=== PATIENT | female | born 1980 | race Caucasian/White ===

== ENCOUNTER 2018-06-06 10:15 | Emergency (ER) | payer MEDICARE, MEDICAID ==
[2018-06-06 10:49] LABS: Hematocrit 40 % (35-47); Hemoglobin 13.6 g/dl (12.0-16.0); Mean Corpuscular HGB Conc 34 g/dl (31-36); Mean Corpuscular Hemoglobin 28 pg (27-31); Mean Corpuscular Volume 81 fL (80-97); Mean Platelet Volume 7.8 um3 (7.4-10.4); Platelet Count 232 10^3/ul (150-450); Red Blood Count 4.87 10^6/ul (4.00-5.40); Red Cell Distribution Width 14 % (10.5-15); White Blood Count 8.8 10^3/ul (3.5-10.8)
[2018-06-06 10:50] LABS: ABS Basophils 0.1 10^3/ul (0-0.2); ABS Eosinophils 0.2 10^3/ul (0-0.6); ABS Lymphocytes 2.1 10^3/ul (1.0-4.8); ABS Monocytes 0.5 10^3/ul (0-0.8)
--- NOTE | 2018-06-06 10:56 | ED ---
Back Pain - HPI Summary HPI Summary: This is brenna Rodriguez documenting for attending Gabriela Moon MD. This patient is a 37 year old F presenting to ED with a chief complaint of back pain since 0800 this morning. She had a similar episode that occurred a couple days ago that woke her from sleep. She had slight back pain all day yesterday as well. The CC is described as a stabbing pain that is non-radiating, constant but waxing and waning with episodes of the worst pain lasting 2.5 hours. She states that the pain wraps around her chest like "it is in labor". The patient rates the pain 10/10 in severity at its worst. Symptoms aggravated by lying flat on her back and taking deep breaths. Symptoms alleviated by nothing. Patient denies recent heavy lifting, abdominal pain, and vaginal bleeding/ discharge. She has not had her period for 3 months now. She has been taking urine tests at home that were all negative, last was 3 weeks ago. She has 3 children, currently not on control. She is currently on medication for depression and anxiety. - History of Current Complaint Chief Complaint: EDChestPainROMI Stated Complaint: BACK/CHEST PAIN Time Seen by Provider: 06/06/18 10:32 Hx Obtained From: Patient Onset/Duration: Sudden Onset, Lasting Hours - 2.5 hours, Still Present Onset/Duration: Started Hours Ago - 0800 today, Still Present Timing: Constant - but waxing and waning, Lasting Hours - 2.5 hours Severity Initially: Severe Severity Currently: Severe Pain Intensity: 10 Pain Scale Used: 0-10 Numeric Character: Sharp Aggravating Symptom(s): Other - lying flat on her back and taking deep breaths Alleviating Symptom(s): Nothing Associated Signs And Symptoms: Positive: Other - Patient denies recent heavy lifting, abdominal pain, and vaginal bleeding/discharge. - Allergies/Home Medications Allergies/Adverse Reactions: Allergies Allergy/AdvReac Type Severity Reaction Status Date / Time codeine Allergy Dizziness Verified 06/06/18 10:20 PMH/Surg Hx/FS Hx/Imm Hx Cardiovascular History: Reports: Hx Hypertension - currently taking labetolol GI History: Reports: Hx Gastroesophageal Reflux Disease - currently taking protonix w/o relief past few weeks Sensory History: Reports: Hx Contacts or Glasses Opthamlomology History: Reports: Hx Contacts or Glasses Psychiatric History: Reports: Hx Anxiety, Hx Depression - currently taking latuda Infectious Disease History: No Infectious Disease History: Denies: Traveled Outside the [place] in Last 30 Days - Family History Known Family History: Positive: Other - child w/ cancer Family History: heart attack - Social History Alcohol Use: None Hx Substance Use: No Substance Use Type: Reports: None Hx Tobacco Use: Yes Smoking Status (MU): Former Smoker Type: Cigarettes Amount Used/How Often: 1/2-1PPD Review of Systems Positive: Chest Pain - back pain wrapping around to her chest Negative: Abdominal Pain Positive: other - denies vaginal bleeding; hasn't had her period for 3 months now, urine tests are all negative. Negative: discharge Positive: Other - back pain wrapping around to her chest; denies any recent heavy lifting All Other Systems Reviewed And Are Negative: Yes Physical Exam - Summary Physical Exam Summary: GENERAL: Patient is a well-developed and nourished FEMALE who is lying comfortable in the stretcher. Patient is not in any acute respiratory distress. HEAD AND FACE: Normocephalic EYES: PERRLA, EOMI x 2. EARS: Hearing grossly intact. MOUTH: Oropharynx within normal limits. NECK: Supple, trachea is midline, no adenopathy, no JVD, no carotid bruit. CHEST: Symmetric, no tenderness at palpation LUNGS: Clear to auscultation bilaterally. No wheezing or crackles. CVS: Regular rate and rhythm, S1 and S2 present, no murmurs or gallops appreciated. ABDOMEN: Soft, non-tender. Bowel sounds are normal. No abdominal abnormal pulsations. BACK: TTP of the paraspinal area in the thoracic region EXTREMITIES: Full ROM in all major joints, no edema, no cyanosis or clubbing. NEURO: Alert and oriented x 3. No acute neurological deficits. Speech is normal and follows commands. SKIN: Dry and warm Triage Information Reviewed: Yes Vital Signs On Initial Exam: Initial Vitals Temp Pulse Resp BP Pulse Ox 97.9 F 80 18 135/95 100 06/06/18 10:21 06/06/18 10:21 06/06/18 10:21 06/06/18 10:21 06/06/18 10:21 Vital Signs Reviewed: Yes Diagnostics - Vital Signs Vital Signs Temp Pulse Resp BP Pulse Ox 06/06/18 10:37 87 12 147/92 96 06/06/18 10:36 78 16 98 06/06/18 10:21 97.9 F 80 18 135/95 100 - Laboratory Lab Results: Lab Results 06/06/18 Range/Units 10:42 WBC 8.8 (3.5-10.8) 10^3/ul RBC 4.87 (4.00-5.40) 10^6/ul Hgb 13.6 (12.0-16.0) g/dl Hct 40 (35-47) % MCV 81 (80-97) fL MCH 28 (27-31) pg MCHC 34 (31-36) g/dl RDW 14 (10.5-15) % Plt Count 232 (150-450) 10^3/ul MPV 7.8 (7.4-10.4) um3 Neut % (Auto) Not Reportable Lymph % (Auto) Not Reportable [place] % (Auto) Not Reportable Eos % (Auto) Not Reportable Baso % (Auto) Not Reportable Absolute Neuts (auto) 6.0 (1.5-7.7) 10^3/ul Absolute Lymphs (auto) 2.1 (1.0-4.8) 10^3/ul Absolute Monos (auto) 0.5 (0-0.8) 10^3/ul Absolute Eos (auto) 0.2 (0-0.6) 10^3/ul Absolute Basos (auto) 0.1 (0-0.2) 10^3/ul Absolute Nucleated RBC Not Reportable Neutrophils % Pending Nucleated RBC % Not Reportable Normal RBC Morphology Pending Result Diagrams: 06/06/18 10:42 06/06/18 10:42 Lab Statement: Any lab studies that have been ordered have been reviewed, and results considered in the medical decision making process. - Radiology CXR Radiology Interpretation Completed By: Radiologist - No evidence for acute intrathoracic disease. ED physician has reviewed this radiology report. T-spine XR Radiology Interpretation Completed By: Radiologist - Very mild multilevel thoracic degenerative spondylosis. ED physician has reviewed this radiology report. - EKG 1040 Cardiac Rate: NL - 82 BPM EKG Rhythm: Sinus Rhythm EKG Interpretation: Normal interval, normal axis Re-Evaluation - Re-Evaluation First Eval Re-Evaluation Time: 12:29 Comment: Her pain is a lot better. Discussed results with the patient and plan for discharge. The patient is agreeable with this plan. Back Pain Course/Dx - Course Assessment/Plan: This patient is a 37 year old F presenting to ED with a chief complaint of back pain wrapping to her chest anteriorly since 0800 this morning. Her workup is unremarkable including D-dimer and trop. The patient was given toradol and GI cocktail and reports resolution of pain. The patients pain is most likely musculoskeletal. I discussed results with patient and she agrees with this plan. She is hemodynamically stable upon discharge. Strict return precautions given and she will otherwise follow up with her PCP. - Diagnoses Differential Diagnosis/HQI/PQRI: Positive: Other - back pain Provider Diagnoses: Back pain Discharge - Sign-Out/Discharge Documenting (check all that apply): Patient Departure - Discharge Plan Condition: Stable Disposition: HOME Patient Education Materials: Back Pain (ED) Referrals: Dada Estrada JR, SENIOR GOVERNMENT PROGRAM ANALYST [Primary Care Provider] - (Follow up with your PCP im 1- 2 days.) Additional Instructions: RETURN TO THE EMERGENCY DEPARTMENT FOR CHANGING OR WORSENING SYMPTOMS. - Billing Disposition and Condition Condition: STABLE Disposition: Home
[2018-06-06 10:58] LABS: INR 0.87 (0.77-1.02)
[2018-06-06 11:11] LABS: ABS Basophils 0 10^3/ul (0-0.2); ABS Neutrophils 6.4 10^3/ul (1.5-7.7); Monocytes % 5 % (0-7)
[2018-06-06 11:14] LABS: EGFR Non-African American 82.8 (>60)
[2018-06-06 11:30] VITALS: BP 129/82
[2018-06-06] MEDS ORDERED: Ketorolac INJ* 60 MG/2 ML VIAL IM ONE (11:39)
[2018-06-06] MEDS ORDERED: Al Hydrox/Mg Hydrox/Simet LIQ* 30 ML UDC PO ONE (11:39)
[2018-06-06] MEDS ORDERED: Lidocaine 2% VISCOUS* 15 ML UDC PO ONE (11:39)
--- NOTE | 2018-06-06 12:21 | RAD ---
Indication: Chest and back pain. History of tobacco use. Comparison: Chest radiograph of the same date. Technique: AP and lateral views thoracic spine. Report: Normal thoracic spine alignment. Negative for fracture or focal osseous lesion. Very mild multilevel thoracic degenerative spondylosis. Unremarkable paraspinal soft tissue contours. IMPRESSION: #. Very mild multilevel thoracic degenerative spondylosis.
--- NOTE | 2018-06-06 12:22 | RAD ---
Indication: Chest and back pain. Comparison: Thoracic spine exam of the same date. Technique: Dual energy PA chest. Report: Clear lungs and pleural spaces. Negative for pneumothorax. The heart, pulmonary vasculature, and mediastinal contours are unremarkable. Unremarkable osseous structures and soft tissue contours. IMPRESSION: #. No evidence for acute intrathoracic disease.
== END 2018-06-06 13:02 | disposition home or self-care (01) ==
LOC: ED 10:15
DX: M54.9 Dorsalgia, unspecified (principal); M47.814 Spondylosis without myelopathy or radiculopathy, thoracic region; Z87.891 Personal history of nicotine dependence; Z88.5 Allergy status to narcotic agent
CPT/HCPCS: 36415; 71045; 72070; 80053; 83605; 83690; 83735; 83880; 84484; 84702; 85025; 85060; 85379; 85610; 85730; 93005; 96372; 99283; A9270-GY; J1885

== ENCOUNTER 2018-09-13 11:23 | Emergency (ER) | payer MEDICARE, MEDICAID ==
[2018-09-13 11:41] VITALS: BP 150/93
--- NOTE | 2018-09-14 07:42 | UC ---
- Progress Note Progress Note: LWBS. NO IMAGING Discharge - Sign-Out/Discharge Documenting (check all that apply): Post-Discharge Follow Up All imaging exams completed and their final reports reviewed: No Studies - Discharge Plan Disposition: LEFT WITHOUT BEING SEEN Referrals: Nikki Miranda NP [Primary Care Provider] - - Billing Disposition and Condition Disposition: Left Without Being Seen
== END 2018-09-13 12:42 | disposition left against medical advice (07) ==
LOC: UCEAST 11:23
DX: Z53.21 Procedure and treatment not carried out due to patient leaving prior to being seen by health care provider (principal)

== ENCOUNTER → 2018-09-13 15:14 | Emergency (ER) | payer MEDICARE, MEDICAID ==
[~2018-09-13 15:14] MED LIST: Acetaminophen TAB* 325 MG PO ONE
--- NOTE | 2018-09-13 17:04 | RAD ---
INDICATION: Chest pain, shortness of breath, cough. Fever. COMPARISON: June 06, 2018 TECHNIQUE: Dual energy PA and routine lateral views of the chest were obtained. REPORT: Mild linear atelectasis at the LEFT lower lung zone. The lungs and pleural spaces are otherwise grossly clear. Negative for pneumothorax. The heart, pulmonary vasculature, and mediastinal contours are unremarkable. IMPRESSION: #. Mild linear atelectasis at the LEFT lower lung zone. No compelling evidence for pneumonia.
--- NOTE | 2018-09-13 18:22 | ED ---
Respiratory - HPI Summary HPI Summary: 37-year-old female presents with cough for the past couple days. She states she denies having fevers. her son was diagnosed with pneumonia. She has no history of asthma seemingly. She has a history of smoking but has not smoked in 6 months. She is not on control. No recent travel. No family history of blood clots. No pain or swelling in calf muscles. States she has chest pain only when she has a deep breath. No chest pain at rest. States that chest pain is diffuse. when she doesn't take a deep breath she does not have the pain. She also notices shortness breath when she coughs. Hasn't tried anything for her symptoms. - History of Current Complaint Chief Complaint: EDUpperRespComplaint Stated Complaint: COUGHING/CHEST PAIN/FEVER Time Seen by Provider: 09/13/18 17:42 Pain Intensity: 4 - Allergy/Home Medications Allergies/Adverse Reactions: Allergies Allergy/AdvReac Type Severity Reaction Status Date / Time codeine Allergy Dizziness Verified 09/13/18 11:41 PMH/Surg Hx/FS Hx/Imm Hx Endocrine/Hematology History: Denies: Hx Anticoagulant Therapy Cardiovascular History: Reports: Hx Hypertension - currently taking labetolol GI History: Reports: Hx Gastroesophageal Reflux Disease - currently taking protonix w/o relief past few weeks Sensory History: Reports: Hx Contacts or Glasses Opthamlomology History: Reports: Hx Contacts or Glasses Psychiatric History: Reports: Hx Anxiety, Hx Depression - currently taking latuda - Surgical History Surgery Procedure, Year, and Place: t&a, adnoids, deviated septum repair, carpel tumer rt hand, ulnar nerve lt , akillys repair, shaved akillys, lt ulner nerve repair Infectious Disease History: No Infectious Disease History: Denies: Traveled Outside the [place] in Last 30 Days - Family History Known Family History: Positive: Other - child w/ cancer Negative: Respiratory Disease Family History: heart attack - Social History Alcohol Use: Rare Hx Substance Use: No Substance Use Type: Reports: None Hx Tobacco Use: Yes Smoking Status (MU): Former Smoker Type: Cigarettes Amount Used/How Often: 1/2-1PPD Review of Systems Positive: Fever Positive: Chest Pain - when takes deep breath Positive: Shortness Of Breath, Cough Negative: Abdominal Pain All Other Systems Reviewed And Are Negative: Yes Physical Exam Triage Information Reviewed: Yes Vital Signs On Initial Exam: Initial Vitals Temp Pulse Resp BP Pulse Ox 99.1 F 105 18 143/81 98 09/13/18 15:19 09/13/18 15:19 09/13/18 15:19 09/13/18 15:19 09/13/18 15:19 Vital Signs Reviewed: Yes Appearance: Positive: Well-Appearing Skin: Positive: Warm, Dry Head/Face: Positive: Normal Head/Face Inspection Eyes: Positive: Normal, EOMI, BASILIO, Conjunctiva Clear ENT: Positive: Normal ENT inspection, Pharynx normal, TMs normal Respiratory/Lung Sounds: Positive: Clear to Auscultation, Breath Sounds Present Cardiovascular: Positive: Normal, RRR Abdomen Description: Positive: Nontender, Soft Bowel Sounds: Positive: Present Musculoskeletal: Positive: Normal Neurological: Positive: Normal Psychiatric: Positive: Normal Diagnostics - Vital Signs Vital Signs Temp Pulse Resp BP Pulse Ox 09/13/18 15:19 99.1 F 105 18 143/81 98 - Laboratory Lab Statement: Any lab studies that have been ordered have been reviewed, and results considered in the medical decision making process. - Radiology chest Radiology Interpretation Completed By: Radiologist Summary of Radiographic Findings: #. Mild linear atelectasis at the LEFT lower lung zone. No compelling evidence for. pneumonia. Disposition - Course Course Of Treatment: 37-year-old female presents with cough for the past couple days. She states she denies having fevers. her son was diagnosed with pneumonia. She has no history of asthma seemingly. She has a history of smoking but has not smoked in 6 months. She is not on control. No recent travel. No family history of blood clots. No pain or swelling in calf muscles. States she has chest pain only when she has a deep breath. No chest pain at rest. States that chest pain is diffuse. when she doesn't take a deep breath she does not have the pain. She also notices shortness breath when she coughs. Hasn't tried anything for her symptoms. On exam lungs clear to auscultation. Chest x-ray shows atelectasis. Discuss with patient we'll try a short course course with some inhaler. Told to follow with primary. Patient understands and agrees with plan. - Differential Dx - Cardiopulmonary Differential Diagnoses - Cardiopulmonary: Bronchitis, Laryngitis, Lower Resp Infection - Diagnoses Provider Diagnoses: Bronchitis Discharge - Sign-Out/Discharge Documenting (check all that apply): Patient Departure - Discharge Plan Condition: Good Disposition: HOME Prescriptions: Albuterol HFA INHALER* [Ventolin HFA Inhaler*] 1 puff INH Q6H PRN #1 mdi PRN Reason: Cough predniSONE TAB* [Deltasone TAB*] 50 mg PO DAILY #5 tab Patient Education Materials: Acute Bronchitis (ED) Referrals: Nikki Miranda NP [Primary Care Provider] - Additional Instructions: Use inhaler up to two puffs every 4 hours for cough Take steroid once a day for 5 days Take Tylenol or ibuprofen for pain every 6 hours follow up with primary within 5 days Return to ED if develop any new or worsening symptoms - Billing Disposition and Condition Condition: GOOD Disposition: Home
[2018-09-13 19:17] VITALS: BP 125/81
== END | disposition home or self-care (01) ==
LOC: ED 15:14
DX: J40 Bronchitis, not specified as acute or chronic (principal); R05 Cough; R07.9 Chest pain, unspecified; R50.9 Fever, unspecified; I10 Essential (primary) hypertension; K21.9 Gastro-esophageal reflux disease without esophagitis; Z87.891 Personal history of nicotine dependence
CPT/HCPCS: 71046; 99282; A9270-GY

== ENCOUNTER 2018-12-04 15:18 | Emergency (ER) | payer MEDICARE, MEDICAID ==
--- OUTSIDE RECORDS SUMMARY | 2018-12-04 15:26 | XMS REPORT | Continuity of Care Document ---
:1980 External Reference #:[id number] Author Name Nikki Miranda NP Address [address] [place] [address] Care Team Providers Name Role Phone Nikki Miranda NP Care Team Information Traffic Representative Unavailable Payers Type Date Identification Numbers Payment Provider Subscriber Policy Number: [id number] Medicare - Bswar Umd Miquel Sequeira PayID: [id number] [address] [place] [address] Policy Number: [id number] Medicaid After Medicare Miquel Sequeira Group Name: 2 1 [address] PayID: [id number] [place] [address] Advance Directives Description No Information Available Problems Description No Information Family History Description No Information Available Social History Type Date Description Comments Sex Unknown Allergies, Adverse Reactions, Alerts Date Description Reaction Status Severity Comments 08/03/2018 Codeine Active Medications Medication Date Status Form Strength Qnty SIG Indications Ordering Provider Latuda / Active Tablets 40mg Take One Unknown 0000 Tablet By Mouth Every Day AT 5P.M. With Food Pantoprazole / Active Tablets DR 80mg Take One Unknown Sodium 0000 Tablet By Mouth Every Day Metformin HCL / Active Tablets 500mg take one Unknown 0000 tablet by mouth twice a day Doxycycline 09/17/ Hx Capsules 100mg 14caps 1 capsule Nikki Hyclate 2018 - by mouth GAVIN Miranda twice 2018 daily x 7 days Ventolin HFA / Hx Aerosol 108(90Base Inhale Unknown 0000 - ) mcg/Act One puff 11/30/ By Mouth 2018 Every 6 Hours as Needed For Cough Immunizations CPT Code Status Date Vaccine Lot # [id number] Refused 09/17/2018 Influenza Virus Vaccine, Quadrivalent, 3 Yr > Quad , Preserv Free Vital Signs Date Vital Result Comment 11/30/2018 1:22pm Weight 340.00 lb Weight 154.224 kg BP Systolic 132 mmHg BP Diastolic 74 mmHg Heart Rate 16 /min Body Temperature 97.8 F Respiratory Rate 16 /min Height 68 inches 5'8" BMI (Body Mass Index) 51.7 kg/m2 O2 % BldC Oximetry 97 % 10/01/2018 9:54am Weight 333.00 lb Weight 151.049 kg BP Systolic 140 mmHg BP Diastolic 82 mmHg Heart Rate 80 /min Body Temperature 97.3 F Respiratory Rate 16 /min O2 % BldC Oximetry 97 % 09/17/2018 9:50am Weight 331.00 lb Weight 150.142 kg BP Systolic 139 mmHg BP Diastolic 88 mmHg Heart Rate 92 /min Body Temperature 99.6 F O2 % BldC Oximetry 92 % 08/03/2018 8:08am Weight 330.00 lb Weight 149.688 kg BP Systolic 128 mmHg BP Diastolic 84 mmHg Heart Rate 76 /min Body Temperature 98.8 F Respiratory Rate 16 /min Height 69 inches 5'9" BMI (Body Mass Index) 48.7 kg/m2 Results Test Date Facility Test Result H/L Range Note Rapid Influenza 09/13/2018 [facility] Influenza A NEGATIVE Negative 1 A & B Molecular [phone] Molecular Influenza B Molecular NEGATIVE Negative Laboratory test 09/13/2018 [facility] Influenza A & B SEE RESULT 2 finding [phone] Request BELOW Laboratory test 08/03/2018 [facility] Hemoglobin A1c 5.6 % N 4.0-5. 3 finding [phone] (Glyco HGB) 6 CBC Auto Diff 08/03/2018 [facility] White Blood 7.6 10^3/uL N 3.5-10 [phone] Count .8 Red Blood Count 5.07 10^6/uL N 4.00-5.40 Hemoglobin 14.1 g/dL N 12.0-16.0 Hematocrit 42 % N 35-47 Mean Corpuscular Volume 82 fL N 80-97 Mean Corpuscular Hemoglobin 28 pg N 27-31 Mean Corpuscular HGB Conc 34 g/dL N 31-36 Red Cell Distribution Width 14 % N 10.5-15 Platelet Count 227 10^3/uL N 150-450 Mean Platelet Volume 8.6 um3 N 7.4-10.4 Abs Neutrophils 4.8 10^3/uL N 1.5-7.7 Abs Lymphocytes 2.2 10^3/uL N 1.0-4.8 Abs Monocytes 0.4 10^3/uL N 0-0.8 Abs Eosinophils 0.1 10^3/uL N 0-0.6 Abs Basophils 0 10^3/uL N 0-0.2 Abs Nucleated RBC 0 10^3/uL Granulocyte % 63.5 % N 38-83 Lymphocyte % 28.9 % N 25-47 Monocyte % 5.6 % N 0-7 Eosinophil % 1.5 % N 0-6 Basophil % 0.5 % N 0-2 Nucleated Red Blood Cells % 0.1 Comp Metabolic Panel 08/03/2018 [facility] Sodium 139 mmol/L N 135-145 [phone] Potassium 4.5 mmol/L N 3.5-5.0 Chloride 104 mmol/L N 101-111 Co2 Carbon Dioxide 27 mmol/L N 22-32 Anion Gap 8 mmol/L N 2-11 Glucose 101 mg/dL High 70-100 Blood Urea Nitrogen 12 mg/dL N 6-24 Creatinine 0.78 mg/dL N 0.51-0.95 BUN/Creatinine Ratio 15.4 N 8-20 Calcium 9.6 mg/dL N 8.6-10.3 Total Protein 7.2 g/dL N 6.4-8.9 Albumin 4.4 g/dL N 3.2-5.2 Globulin 2.8 g/dL N 2-4 Albumin/Globulin Ratio 1.6 N 1-3 Total Bilirubin 0.30 mg/dL N 0.2-1.0 Alkaline Phosphatase 84 U/L N 34-104 Alt 28 U/L N 7-52 Ast 20 U/L N 13-39 Egfr Non- 84.0 >60 Egfr 101.7 >60 4 Lipid Profile 08/03/2018 [facility] Triglycerides 240 mg/dL 5 (Trig/Chol/HDL) [phone] Cholesterol 211 mg/dL 6 HDL Cholesterol 48.5 mg/dL 7 LDL Cholesterol 115 mg/dL 8 Laboratory test 08/03/2018 [facility] TSH (Thyroid 2.50 mcIU/mL N 0.34-5.60 9 finding [phone] Stim Horm) Free T4 (Free Thyroxine) 0.69 ng/dL N 0.61-1.12 10 T3 Total 151 ng/dL N 87-178 11 Thyroperoxidase AB 0.60 IU/mL N <9 12 1 Spreader Box Operator: [id number] 2 SEE RESULT BELOW Name: ENRIKEMIQUEL : [address]: Ruth Sommer MD Acct: [id number] Unit: [id number] AGE: 37 Location: ED Re09/13/18 SEX: F Status: REG ER SPEC: [id number] RODERICK: 09/13/[address]: Meseret LAMAS REQ: [id number] RECD: 09/13/18 STATUS: ADELINE GONZALEZ DR: Nikki Miranda HIDE COOKING OPERATOR _ SOURCE: NASAL SPDESC: ORDERED: Flu A B Request Procedure Result Reported Site Rapid Influenza A B Request Final 09/13/18- 1817 ML Specimen received for Influenza A/B Molecular testing * ML - Main Lab . END OF REPORT DEPARTMENT OF PATHOLOGY, [address] [place] [address] Ezio Logan M.D. Director [facility] # [id number] 3 Therapeutic target for the treatment of diabetes mellitus patients is <7% HBA1C, and in selective patients <6.0%. Please refer to [place] [employer] diabetic care guidelines for further information. 4 Because ethnic data is not always readily available, this report includes an eGFR for both -Americans and non- Americans. The National Kidney Disease Education Program (NKDEP) does not endorse the use of the MDRD equation for patients that are not between the ages of 18 and 70, are , have extremes of body size, muscle mass, or nutritional status, or are non- or non-. According to the National Kidney Foundation, irrespective of diagnosis, the stage of the disease is based on the level of kidney function: Stage Description GFR(mL/min/1.73 m(2)) 1 Kidney damage with normal or decreased GFR 90 2 Kidney damage with mild decrease in GFR 60-89 3 Moderate decrease in GFR 30-59 4 Severe decrease in GFR 15-29 5 Kidney failure <15 (or dialysis) 5 Desirable: <150 Borderline High: 150-199 High: 200-499 Very High: >500 6 Desirable: <200 Borderline High: 200-239 High: >239 7 Low: <40 Desirable: 40-60 High: >60 8 Desirable: <100 Near Optimal: 100-129 Borderline High: 130-159 High: 160-189 Very High: >189 9 [id number] 10 [id number] 12 [id number] Procedures Date Code Description Status 09/17/2018 83143 Nebulizer Treatment Completed Encounters Type Date Location Provider Dx Diagnosis Office Visit 10/01/2018 Main Office Nikki Miranda, GAVIN J18.9 Pneumonia, 10:00a unspecified organism G47.9 Sleep disorder, unspecified R63.5 Abnormal weight gain Office Visit 09/17/2018 9:30a [facility] Nikki Miranda, J18.9 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 If you can't sleep, get out of bed and try again later. -Have coffee, tea, and other foods that have caffeine only in the morning -Avoidalcohol in the late afternoon, evening, and bedtime -Avoid smoking , especially in the evening -Keep your bedroom dark, cool, quiet, and free of reminders of work or other things that cause you stress -Solve problems you have before you go to bed -Exercise several days a week, but not right before bed -Avoid looking at phones or reading devices ("e-books") that give off light before bed. This can makeit harder to fall asleep. Other things that can improve sleep include: -Relaxation therapy, in whichyou focus on relaxing all the muscles in your body 1 by 1 -Working with a counselor or psychologist to deal with the problems that might be causing poor sleep -You should spend no more than 20 minutes lying in bed trying to fall asleep. -If you cannot fall asleep within 20 minutes, get up, go to another room and read or find another relaxing activity until you feel sleepy again. Activities such as eating, balancing your checkbook, doing housework, watching TV, or studying for a test, which "reward" you for staying awake, should be avoided. -When you start to feel sleepy, you can return to bed. If you cannot fall asleep in another 20 minutes, repeat the process. -Set an alarm clock and get up at the same time every day, including weekends. -Do not take a nap during the day.R63.5 Abnormal weight gainFollow up:.M54.5 Low back painNew Therapy:Physical Therapy-Evaluate And Treat
[2018-12-04 15:34] VITALS: BP 148/90
--- NOTE | 2018-12-04 15:50 | ED ---
Throat Pain/Nasal Congestion - HPI Summary HPI Summary: developed pain in a right upper molar shortly after extraction a few days ago. since that time has returned to the dentist socket was packed, packing fell out shortly afterward, now using ibuprofen 2400 mg per day - History of Current Complaint Chief Complaint: UCDentalProblem Time Seen by Provider: 12/04/18 15:38 Hx Obtained From: Patient Onset/Duration: Gradual Onset, Lasting Days Severity: Moderate - Allergies/Home Medications Allergies/Adverse Reactions: Allergies Allergy/AdvReac Type Severity Reaction Status Date / Time codeine Allergy See Comment Verified 12/04/18 15:34 Home Medications: Home Medications metFORMIN* [Glucophage 500 MG TAB *] 500 mg PO BID 12/04/18 [History Confirmed 12/04/18] PMH/Surg Hx/FS Hx/Imm Hx Previously Healthy: Yes Endocrine/Hematology History: Denies: Hx Anticoagulant Therapy Cardiovascular History: Reports: Hx Hypertension - currently taking labetolol GI History: Reports: Hx Gastroesophageal Reflux Disease - currently taking protonix w/o relief past few weeks Sensory History: Reports: Hx Contacts or Glasses Opthamlomology History: Reports: Hx Contacts or Glasses Psychiatric History: Reports: Hx Anxiety, Hx Depression - currently taking latuda - Surgical History Surgery Procedure, Year, and Place: t&a, adnoids, deviated septum repair, carpel tumer rt hand, ulnar nerve lt , achilles repair, shaved achilles, lt ulnar nerve repair Infectious Disease History: No Infectious Disease History: Denies: Traveled Outside the [place] in Last 30 Days - Family History Known Family History: Positive: Other - child w/ cancer Negative: Respiratory Disease Family History: heart attack - Social History Alcohol Use: Rare Hx Substance Use: No Substance Use Type: Reports: None Hx Tobacco Use: Yes Smoking Status (MU): Former Smoker Type: Cigarettes Amount Used/How Often: 1/2-1PPD Review of Systems - ROS Summary Review of Systems Summary: bipolar disease, diabetes mellitus Constitutional: Negative Eyes: Negative Positive: Other - dental pain right upper molar Cardiovascular: Negative Respiratory: Negative Gastrointestinal: Negative Genitourinary: Negative Musculoskeletal: Negative All Other Systems Reviewed And Are Negative: Yes Physical Exam Triage Information Reviewed: Yes Vital Signs On Initial Exam: Initial Vitals Temp Pulse Resp BP Pulse Ox 37.1 C 95 18 148/90 97 12/04/18 15:29 12/04/18 15:29 12/04/18 15:29 12/04/18 15:29 12/04/18 15:29 Vital Signs Reviewed: Yes Appearance: Positive: Well-Appearing Skin: Positive: Warm Head/Face: Positive: Normal Head/Face Inspection Eyes: Positive: Normal ENT: Positive: Normal ENT inspection, Other - mild swelling in the gingiva surrounding the area of recent tooth extraction Neck: Positive: Supple Respiratory/Lung Sounds: Positive: Clear to Auscultation Cardiovascular: Positive: Normal Diagnostics - Vital Signs Vital Signs Temp Pulse Resp BP Pulse Ox 12/04/18 15:29 37.1 C 95 18 148/90 97 - Laboratory Lab Statement: Any lab studies that have been ordered have been reviewed, and results considered in the medical decision making process. EENT Course/Dx - Diagnoses Provider Diagnoses: Dry tooth socket Discharge - Sign-Out/Discharge Documenting (check all that apply): Patient Departure All imaging exams completed and their final reports reviewed: No Studies - Discharge Plan Condition: Fair Disposition: HOME Prescriptions: Oxycodone HCl/Acetaminophen [Percocet 5-325 mg Tablet] 1 each PO Q8HR PRN 6 Days #20 tablet MDD 3 PRN Reason: Pain - Moderate Patient Education Materials: Dry Socket (ED) Referrals: Nikki Miranda NP [Primary Care Provider] - - Billing Disposition and Condition Condition: FAIR Disposition: Home
== END 2018-12-04 16:00 | disposition home or self-care (01) ==
LOC: UCEAST 15:18
DX: M27.3 Alveolitis of jaws (principal); I10 Essential (primary) hypertension; K21.9 Gastro-esophageal reflux disease without esophagitis; Z88.5 Allergy status to narcotic agent; Z87.891 Personal history of nicotine dependence
CPT/HCPCS: 99212; G0463

== ENCOUNTER 2019-05-26 19:25 | Emergency (ER) | payer MEDICAID, MEDICARE ==
[2019-05-26 19:31] VITALS: BP 155/95
--- OUTSIDE RECORDS SUMMARY | 2019-05-26 19:36 | XMS REPORT | Continuity of Care Document ---
:1980 External Reference #:[id number] Author Name MarshalalmaKimberly Care Team Providers Name Role Phone Nikki Miranda F.N.P. Primary Care Physician Unavailable Payers Date Identification Numbers Payment Provider Subscriber Policy Number: [id number] Medicare Megan Sequeira PayID: [id number] [address] [place] [address] Policy Number: [id number] Medicaid Megan Sequeira Group Name: 1 1 [address] PayID: [id number] [place] [address] Problems Active Problems Provider Date Migraine without aura, not refractory Noah Spaulding MD Onset: 01/14/2019 Family History Date Family Member(s) Observation Comments General Diabetes General Breast Cancer General Colon Cancer General Pancreatic Cancer General Skin Cancer Siblings 1 Social History Type Date Description Comments Sex Unknown Marital Status Lives With Lives With Children Lives With friend 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 Tobacco Use Start: Unknown End: Former Cigarette Smoker Unknown Tobacco Use Start: Unknown End: Former Cigarette Smoker 1 Unknown Pack Daily Cigarette Use Pack Years - 19 Smoking Status Reviewed: 05/09/19 Former Cigarette Smoker 1 Pack Daily ETOH Use Rarely consumes alcohol Tobacco Use Start: Unknown End: Patient is a former smoker Unknown Recreational Drug Use Former Drug User Allergies, Adverse Reactions, Alerts Active Allergies Reaction Severity Comments Date Codeine 01/11/2019 Medications Active Medications SIG Qnty Indications Ordering Provider Date Amitriptyline HCL 1/2 pill by 60tabs Noah Spaulding MD 02/04/2019 10mg mouth at bedtime Tablets for a week then 1 at bed for two weeks then 2 at bed Latuda once a day Unknown 40mg Tablets Protonix 2 by mouth every Unknown 40mg Tablets DR day Metformin HCL 1 tab po qhs Unknown 1000mg Tablets History Medications Protonix 1 by mouth every day Unknown - 01/14/[address] Vital Signs Date Vital Result Comment 05/09/2019 2:26pm Height 69 inches 5'9" Weight 345.50 lb Heart Rate 92 /min BP Systolic Sitting 120 mmHg Lue large cuff BP Diastolic Sitting 80 mmHg Lue large cuff Respiratory Rate 16 /min O2 % BldC Oximetry 97 % On Ra BMI (Body Mass Index) 51.0 kg/m2 02/10/2019 10:39am Height 69 inches 5'9" Weight 344.38 lb Heart Rate 98 /min BP Systolic Sitting 128 mmHg large adult cuff left arm BP Diastolic Sitting 86 mmHg large adult cuff left arm O2 % BldC Oximetry 95 % at rest on room air BMI (Body Mass Index) 50.8 kg/m2 01/14/2019 9:55am Height 69 inches 5'9" Weight 345.00 lb Heart Rate 90 /min BP Systolic Sitting 138 mmHg BP Diastolic Sitting 82 mmHg Respiratory Rate 16 /min BMI (Body Mass Index) 50.9 kg/m2 01/11/2019 3:12pm Height 69 inches 5'9" Weight 345.00 lb Heart Rate 100 /min BP Systolic Sitting 140 mmHg Rue large cuff BP Diastolic Sitting 80 mmHg Rue large cuff Respiratory Rate 16 /min O2 % BldC Oximetry 96 % BMI (Body Mass Index) 50.9 kg/m2 Neck Circumference in inches 17.50 Procedures Date Code Description Status 03/08/2019 40959 Polysomnography Sleep Staging 4+ Parameters W/Cpap Completed 01/31/2019 48320 Polysomnography Sleep Staging 4+ Parameters Completed Encounters Type Date Location Provider Dx Diagnosis Office Visit 02/10/2019 [facility] G47.33 Obstructive sleep 10:30a [facility] apnea (adult) [facility] ([facility]) Z68.43 Body mass index (BMI) 50-59.9, adult Office 01/14/2019 [facility] G43.709 Chronic migraine Visit 10:00a Clinic MD [facility] w/o aura, not intractable, w/o stat migr Office 01/11/2019 [facility] R06.83 Snoring Visit 3:00p [facility] MD R53.83 Other fatigue E66.09 Other obesity due to excess calories Z68.43 Body mass index (BMI) 50-59.9, adult Plan of Treatment Future Appointment(s):05/31/2019 9:45 am - Noah Spaulding MD at [facility] X[facility]vv9805/09/2019 - [facility], NPG47.33 Obstructive sleep apnea (adult) (pediatric)New Orders:[facility]Home[facility], Ordered: Follow up:4 monthsRecommendations:If you have any sleepiness while driving you MUST avoid operating a vehicle or machinery. Work on getting 7-8 hours of sleep per night with your CPAP machine. If you have difficulty with your equipment, or need to replace your mask or hoses, please contact your homecare agency. If you have any further questions, please call the [facility] at [phone] Obesity, unspecifiedRecommendations:Work on getting more regular exercise during the day
== END 2019-05-26 20:10 | disposition left against medical advice (07) ==
LOC: ED 19:25
DX: Z53.21 Procedure and treatment not carried out due to patient leaving prior to being seen by health care provider (principal)
CPT/HCPCS: 99281

== ENCOUNTER 2019-06-23 05:54 | Emergency (ER) | payer MEDICARE, MEDICAID ==
--- OUTSIDE RECORDS SUMMARY | 2019-06-23 06:06 | XMS REPORT | Continuity of Care Document ---
:1980 External Reference #:[id number] Author Name Shania West Care Team Providers Name Role Phone Nikki Miranda F.N.P. Primary Care Physician Unavailable Payers Date Identification Numbers Payment Provider Subscriber Policy Number: [id number] Medicare Megan Sequeira PayID: [id number] [address] [place] [address] Policy Number: [id number] Medicaid Megan Sequeira Group Name: 1 [address] PayID: [id number] [place] [address] Problems Active Problems Provider Date Migraine without aura, not refractory Noah Spaulding MD Onset: 01/14/2019 Family History Date Family Member(s) Observation Comments General Diabetes General Breast Cancer General Colon Cancer General Pancreatic Cancer General Skin Cancer Siblings 1 Social History Type Date Description Comments Sex Unknown Marital Status Lives With Lives With Children Lives With friend 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 Tobacco Use Start: Unknown End: Former Cigarette Smoker Unknown Tobacco Use Start: Unknown End: Former Cigarette Smoker 1 Unknown Pack Daily Cigarette Use Pack Years - 19 Smoking Status Reviewed: 06/01/19 Former Cigarette Smoker 1 Pack Daily ETOH Use Rarely consumes alcohol Tobacco Use Start: Unknown End: Patient is a former smoker Unknown Recreational Drug Use Former Drug User Exercise Type/Frequency Does not exercise Allergies, Adverse Reactions, Alerts Active Allergies Reaction Severity Comments Date Codeine 01/11/2019 Medications Active Medications SIG Qnty Indications Ordering Provider Date Maxalt 1 by mouth as 14tabs G43.709 Noah Spaulding MD 05/27/2019 10mg Tablets needed for migraines and may repeat once in 2 hours Latuda once a day Unknown 40mg Tablets Protonix 2 by mouth every Unknown 40mg Tablets day DR Metformin HCL 1 by mouth every Unknown 500mg day Tablets History Medications Amitriptyline HCL 1/2 pill by mouth 60tabs Noah Spaulding MD 02/04/2019 - 10mg at bedtime for a 05/26/2019 Tablets week then 1 at bed for two weeks then 2 at bed Protonix 1 by mouth every Unknown - 40mg Tablets DR day 01/14/2019 Metformin HCL 1 tab po qhs Unknown - 1000mg 05/27/2019 Tablets Vital Signs Date Vital Result Comment 06/01/2019 3:26pm Height 69 inches 5'9" Weight 345.00 lb Heart Rate 82 /min BP Systolic 134 mmHg BP Diastolic 82 mmHg Respiratory Rate 17 /min Pain Level 6 BMI (Body Mass Index) 50.9 kg/m2 05/27/2019 10:56am Height 69 inches 5'9" Weight 345.00 lb Heart Rate 78 /min BP Systolic Sitting 136 mmHg BP Diastolic Sitting 80 mmHg Respiratory Rate 18 /min BMI (Body Mass Index) 50.9 kg/m2 05/09/2019 2:26pm Height 69 inches 5'9" Weight [...] 17.50 Procedures Date Code Description Status 03/08/2019 21795 Polysomnography Sleep Staging 4+ Parameters W/Cpap Completed 01/31/2019 69096 Polysomnography Sleep Staging 4+ Parameters Completed Encounters Type Date Location Provider Dx Diagnosis Office Visit 06/01/2019 [facility] Jose M Coles, M47.896 Other spondylosis, 3:30p [facility] lumbar region Office Visit 05/09/2019 [facility] G47.33 Obstructive sleep 3:00p [facility] ap[facility] (adult) [facility] (pediatric) E66.9 Obesity, unspecified Z68.43 Body mass index (BMI) 50-59.9, adult Office Visit 02/10/2019 [facility] G47.33 Obstructive sleep 10:30a [facility] apnea (adult) [facility] (pediatric) Z68.43 Body mass index (BMI) 50-59.9, adult Office 01/14/2019 [facility] G43.709 Chronic migraine Visit 10:00a Clinic MD [facility] w/o aura, not intractable, w/o stat migr Office 01/11/2019 [facility] R06.83 Snoring Visit 3:00p [facility] MD R53.83 Other fatigue E66.09 Other obesity due to excess calories Z68.43 Body mass index (BMI) 50-59.9, adult Plan of Treatment Future Appointment(s):07/08/2019 2:30 pm - CYDNEY Del Cid at [facility]11/28/2019 2:30 pm - Noah Spaulding MD at [place]06/01/2019 - Jose M Coles, PAM47.896 Other spondylosis, lumbar regionFollow up:RTC 4 weeks
--- OUTSIDE RECORDS SUMMARY | 2019-06-23 06:06 | XMS REPORT | Continuity of Care Document ---
:1980 External Reference #:[id number] Author Name Shania West Care Team Providers Name Role Phone Nikki Miranda F.N.P. Primary Care Physician Unavailable Payers Date Identification Numbers Payment Provider Subscriber Policy Number: [id number] Medicare Megan Sequeira PayID: [id number] [address] [place] [address] Policy Number: [id number] Medicaid Megan Sequeira Group Name: 1 [address] PayID: [id number] [place] [address] Problems Active Problems Provider Date Migraine without [...] 17.50 Procedures Date Code Description Status 03/08/2019 16423 Polysomnography Sleep Staging 4+ Parameters W/Cpap Completed 01/31/2019 68895 Polysomnography Sleep Staging 4+ Parameters Completed Encounters Type Date Location Provider Dx Diagnosis Office Visit 05/27/2019 [facility] Spaulding, G43.709 Chronic migraine 10:45a [facility] w/o aura, not intractable, w/o stat migr Office Visit 05/09/2019 [facility] G47.33 Obstructive sleep 3:00p [facility] ([facility]) [facility] ([facility]) E66.9 Obesity, unspecified Z68.43 Body mass index (BMI) 50-59.9, adult Office Visit 02/10/2019 [facility] G47.33 Obstructive sleep 10:30a [facility] apnea (adult) [facility] (pediatric) Z68.43 Body mass index (BMI) 50-59.9, [...] CYDNEY Del Cid at [facility]11/28/2019 2:30 pm - Noah Spaulding MD at [facility]06/01/2019 - Jose M Coles, PAM47.896 Other spondylosis, lumbar regionFollow up:RTC 4 weeks
--- OUTSIDE RECORDS SUMMARY | 2019-06-23 06:06 | XMS REPORT | Continuity of Care Document ---
:1980 External Reference #:[id number] Author Name ThongRolandmy Care Team Providers Name Role Phone Nikki Miranda F.N.P. Primary Care Physician Unavailable Payers Date Identification Numbers Payment Provider Subscriber Policy Number: [id number] Medicare Megan Sequeira PayID: [id number] [address] [place] [address] Policy Number: [id number] Medicaid Megan Sequeira Group Name: 1 1 [address] PayID: [id number] [place] [address] Problems Active Problems Provider Date Migraine without aura, not refractory Noah Spaulding MD Onset: 01/14/2019 Family History Date Family Member(s) Observation Comments General Diabetes General Breast Cancer General Colon Cancer General Pancreatic Cancer General Skin Cancer Siblings 1 Social History Type Date Description Comments Sex Unknown Marital Status Lives With Lives With Children Lives With friend 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 Tobacco Use Start: Unknown End: Former Cigarette Smoker Unknown Tobacco Use Start: Unknown End: Former Cigarette Smoker 1 Unknown Pack Daily Cigarette Use Pack Years - 19 Smoking Status Reviewed: 05/27/19 Former Cigarette Smoker 1 Pack Daily ETOH [...] Tablets Vital Signs Date Vital Result Comment 05/27/2019 10:56am Height 69 inches 5'9" Weight [...] 17.50 Procedures Date Code Description Status 03/08/2019 30933 Polysomnography Sleep Staging 4+ Parameters W/Cpap Completed 01/31/2019 57445 Polysomnography Sleep Staging 4+ Parameters Completed Encounters Type Date Location Provider Dx Diagnosis Office Visit 05/27/2019 [facility] Noah Spaulding, G43.709 Chronic migraine 10:45a [facility] w/o aura, not intractable, w/o stat migr Office Visit 05/09/2019 [facility] G47.33 Obstructive sleep 3:00p [facility] apnea (adult) [facility] (pediatric) E66.9 Obesity, unspecified Z68.43 Body mass index (BMI) 50-59.9, adult Office Visit 02/10/2019 [facility] G47.33 Obstructive sleep 10:30a [facility] apnea (adult) [facility] (pediatric) Z68.43 Body mass index (BMI) 50-59.9, adult Office 01/14/2019 [facility] G43.709 Chronic migraine Visit 10:00a [facility] MD Chelly w/o aura, not intractable, w/o stat migr Office 01/11/2019 [facility] R06.83 Snoring Visit 3:00p [facility] MD Eduardo R53.83 Other fatigue E66.09 Other obesity due to excess calories Z68.43 Body mass index (BMI) 50-59.9, adult Plan of Treatment Future Appointment(s):11/28/2019 2:30 pm - Noah Spaulding MD at [place] [facility]06/01/2019 3:30 pm - CYDNEY Del Cid at [facility]05/27/2019 - Noah Spaulding MDG43.709 Chronic migraine without aura, not intractable, without statNew Medication:Maxalt 10 mg - 1 by mouth as needed for migraines and may repeat once in 2 hoursComments: Overall headaches are better with nasal cpap but gets occasional bad migraines at this point and will use maxalt as needed. Side effects discussed.Follow up:6 MONTHS - she will call for problems
--- NOTE | 2019-06-23 06:19 | ED ---
- HPI Summary HPI Summary: Patient is a 38-year-old female who presents emergency department for possible miscarriage. Patient states she took 2 home tests which were positive this past week. Patient states today she started with vaginal bleeding that would be consistent with menstrual bleeding. Patient notes minimal lower abdominal pain. Symptoms are moderate in severity. No current modifying factors. Patient has not yet seen her OB for this . - History of Current Complaint Chief Complaint: EDOBProblems Stated Complaint: POS MISCARRIAGE PER PT Hx Obtained From: Patient Pain Intensity: 0 - Assessment Hx Now: No - Allergies/Home Medications Allergies/Adverse Reactions: Allergies Allergy/AdvReac Type Severity Reaction Status Date / Time codeine Allergy See Comment Verified 05/26/19 19:31 PMH/Surg Hx/FS Hx/Imm Hx Previously Healthy: Yes Endocrine/Hematology History: Denies: Hx Anticoagulant Therapy, Hx Diabetes Cardiovascular History: Reports: Hx Hypertension - currently taking labetolol Denies: Hx Pacemaker/ICD GI History: Reports: Hx Gastroesophageal Reflux Disease - currently taking protonix w/o relief past few weeks History: Denies: Hx Renal Disease Sensory History: Reports: Hx Contacts or Glasses Denies: Hx Hearing Aid Opthamlomology History: Reports: Hx Contacts or Glasses Psychiatric History: Reports: Hx Anxiety, Hx Depression - currently taking latuda Denies: Hx Panic Disorder - Surgical History Surgery Procedure, Year, and Place: t&a, adnoids, deviated septum repair, carpel tumer rt hand, ulnar nerve lt , achilles repair, shaved achilles, lt ulnar nerve repair Infectious Disease History: No Infectious Disease History: Denies: Traveled Outside the [place] in Last 30 Days - Family History Known Family History: Positive: Other - child w/ cancer, Non-Contributory Negative: Respiratory Disease Family History: heart attack - Social History Occupation: Unemployed Lives: With Family Alcohol Use: Rare Hx Substance Use: No Substance Use Type: Reports: None Hx Tobacco Use: Yes Smoking Status (MU): Former Smoker Type: Cigarettes Amount Used/How Often: 1/2-1PPD Review of Systems Constitutional: Negative Negative: Fever, Chills Cardiovascular: Negative Negative: Chest Pain Respiratory: Negative Negative: Shortness Of Breath Gastrointestinal: Negative Positive: other - vaginal bleeding Neurological: Negative All Other Systems Reviewed And Are Negative: Yes Physical Exam - Physical Exam Triage Information Reviewed: Yes Vital Signs Reviewed: Yes Appearance: Positive: Well-Appearing - Pt. sitting up in bed in NAD. SO present. Skin: Positive: Warm, Dry Head/Face: Positive: Normal Head/Face Inspection Eyes: Positive: Normal, EOMI Neck: Positive: Supple Respiratory/Lung Sounds: Positive: Clear to Auscultation, Breath Sounds Present Cardiovascular: Positive: Normal, RRR Abdomen Description: Positive: Other: - Morbidly obese. Abd. is soft with mild tenderness to lower pelvis. Neurological: Positive: Normal, CN Intact II-III Psychiatric: Positive: Affect/Mood Appropriate Diagnostics - Vital Signs Vital Signs Temp Pulse Resp BP Pulse Ox 06/23/19 05:56 98 F 88 18 163/100 96 - Laboratory Result Diagrams: 06/23/19 06:45 Lab Statement: Any lab studies that have been ordered have been reviewed, and results considered in the medical decision making process. Course/Dx - Course Course Of Treatment: Patient presenting with vaginal bleeding and potential early . Vital signs stable. CBC shows a stable H&H. Blood type is O+ . Beta hCG is 6 which is indeterminate. Suspect this is patient's regular menstrual cycle. Results discussed with patient. She'll follow-up with her FLORAL ASSISTANT for repeat beta hCG in 48 hours. Patient understands and agrees with plan. Return to the ER symptoms change or worsen. - Differential Diagnosis/HQI/PQRI: Incomplete , Missed , Spontaneous , Threatened , Early - Diagnoses Provider Diagnoses: Abnormal vaginal bleeding Discharge - Sign-Out/Discharge Documenting (check all that apply): Patient Departure Patient Received Moderate/Deep Sedation with Procedure: No - Discharge Plan Condition: Good Disposition: HOME Patient Education Materials: Dysfunctional Uterine Bleeding (ED) Referrals: Nikki Miranda NP [Primary Care Provider] - Nicki Varela MD [Medical Doctor] - Additional Instructions: Schedule a follow up appointment with your BARK PEELER for a repeat beta HCG ( level) Return to ER if symptoms change or worsen - Billing Disposition and Condition Condition: GOOD Disposition: Home
[2019-06-23 07:00] LABS: ABS Basophils 0.1 10^3/ul (0-0.2); ABS Eosinophils 0.2 10^3/ul (0-0.6); ABS Lymphocytes 1.9 10^3/ul (1.0-4.8); ABS Monocytes 0.6 10^3/ul (0-0.8); ABS Neutrophils 6.1 10^3/ul (1.5-7.7); Eosinophil % 1.8 %; Hematocrit 36 % (35-47); Hemoglobin 12.5 g/dL (12.0-16.0); Lymphocyte % 21.9 %; Mean Corpuscular HGB Conc 34 g/dL (31-36); Mean Corpuscular Hemoglobin 27 pg (27-31); Mean Corpuscular Volume 79 fL (80-97); Mean Platelet Volume 7.8 fL (7.4-10.4); Platelet Count 238 10^3/uL (150-450); Red Blood Count 4.64 10^6 /uL (3.70-4.87); Red Cell Distribution Width 15 % (10-15); White Blood Count 8.9 10^3/uL (3.5-10.8)
[2019-06-23 07:51] LABS: Urine Appearance Cloudy; Urine Bacteria Absent (Absent); Urine Bilirubin Negative (Negative); Urine Blood 3+ (Negative); Urine Color Yellow; Urine Glucose Negative (Negative); Urine Ketones Negative (Negative); Urine Nitrite Negative (Negative); Urine Protein 1+(30 mg/dL) (Negative); Urine Red Blood Cell 3+(>10/hpf) (Absent); Urine Specific Gravity 1.023 (1.010-1.030); Urine Squamous Epithelial Cell Present (Absent); Urine Urobilinogen Negative (Negative); Urine White Blood Cell Absent (Absent)
[2019-06-23 08:00] VITALS: BP 138/88
== END 2019-06-23 08:00 | disposition home or self-care (01) ==
LOC: ED 05:54
DX: N93.9 Abnormal uterine and vaginal bleeding, unspecified (principal); I10 Essential (primary) hypertension; K21.9 Gastro-esophageal reflux disease without esophagitis; F41.9 Anxiety disorder, unspecified; F32.9 Major depressive disorder, single episode, unspecified; Z87.891 Personal history of nicotine dependence; Z79.899 Other long term (current) drug therapy; Z88.5 Allergy status to narcotic agent
CPT/HCPCS: 36415; 81003; 81015; 84702; 85025; 86900; 86901; 99282

== ENCOUNTER 2020-02-03 12:43 | Emergency (ER) | payer MEDICARE, MEDICAID ==
--- NOTE | 2020-02-03 14:07 | ED ---
Respiratory - HPI Summary HPI Summary: Pt. is a 39 y.o female who presents to the ER for increased cough and shortness of breath x 1 day. Pt. positive for influenza two days ago. On tamiflu. Pt. notes she just travelled back from [place] last week. Notes family members sick with similar sxs. No past medical hx. Sxs are mild in severity. No current modifying factors. Pt. states she called her PCP who advised pt. to come to the ED to be tested for COVID. - History of Current Complaint Chief Complaint: EDShortnessOfBreath Stated Complaint: SOB,FEVER,SORE THROAT PER PT Time Seen by Provider: 02/03/20 12:59 Pain Intensity: 0 - Allergy/Home Medications Allergies/Adverse Reactions: Allergies Allergy/AdvReac Type Severity Reaction Status Date / Time codeine Allergy See Comment Verified 07/04/19 10:21 Home Medications: Home Medications ALPRAZolam TAB* [Xanax TAB*] 0.25 mg PO BID PRN 02/03/20 [History Confirmed ] Lurasidone(*) [Latuda] 20 mg PO DAILY 02/03/20 [History Confirmed 02/03/20] Pantoprazole TAB * [Protonix TAB*] 40 mg PO BID 02/03/20 [History Confirmed ] Varenicline 0.5 mg Tab(Nf) [Chantix 0.5 MG TAB(NF)] 0.5 mg PO . DIRECTED 02/02 [History Confirmed 02/03/20] PMH/Surg Hx/FS Hx/Imm Hx Previously Healthy: Yes Endocrine/Hematology History: Denies: Hx Anticoagulant Therapy, Hx Diabetes Cardiovascular History: Reports: Hx Hypertension - currently taking labetolol Denies: Hx Pacemaker/ICD GI History: Reports: Hx Gastroesophageal Reflux Disease - currently taking protonix w/o relief past few weeks History: Denies: Hx Renal Disease Sensory History: Reports: Hx Contacts or Glasses Denies: Hx Hearing Aid Opthamlomology History: Reports: Hx Contacts or Glasses Psychiatric History: Reports: Hx Anxiety, Hx Depression - currently taking latuda Denies: Hx Panic Disorder - Surgical History Surgery Procedure, Year, and Place: t&a, adnoids, deviated septum repair, carpel tumer rt hand, ulnar nerve lt , achilles repair, shaved achilles, lt ulnar nerve repair Infectious Disease History: No Infectious Disease History: Denies: Traveled Outside the [place] in Last 30 Days - Family History Known Family History: Positive: Other - child w/ cancer, Non-Contributory Negative: Respiratory Disease Family History: heart attack - Social History Alcohol Use: Rare Hx Substance Use: No Substance Use Type: Reports: Marijuana Substance Use Comment - Amount & Last Used: occasionally Hx Tobacco Use: Yes Smoking Status (MU): Former Smoker Type: Cigarettes Amount Used/How Often: 1/2-1PPD Review of Systems Positive: Fever, Chills Eyes: Negative Positive: Sore Throat Positive: Chest Pain Positive: Shortness Of Breath, Cough Gastrointestinal: Negative Negative: Abdominal Pain, Vomiting, Diarrhea Positive: Myalgia Neurological/Mental Status: Negative All Other Systems Reviewed And Are Negative: Yes Physical Exam Triage Information Reviewed: Yes Vital Signs On Initial Exam: Initial Vitals Temp Pulse Resp BP Pulse Ox 98 F 104 18 127/91 98 02/03/20 12:58 02/03/20 12:58 02/03/20 12:58 02/03/20 12:58 02/03/20 12:58 Vital Signs Reviewed: Yes Appearance: Positive: Well-Appearing - Pt. sitting up in bed in NAD. No signs of respiratory ditress. Speaking in full sentences. Skin: Positive: Warm, Dry Head/Face: Positive: Normal Head/Face Inspection Eyes: Positive: Normal, EOMI, BASILIO ENT: Positive: Pharynx normal, TMs normal Neck: Positive: Supple Respiratory/Lung Sounds: Positive: Clear to Auscultation, Breath Sounds Present. Negative: Decreased Breath Sounds, Rales, Wheezes Cardiovascular: Positive: Normal, RRR Neurological: Positive: Normal, CN Intact II-III Psychiatric: Positive: Affect/Mood Appropriate Procedures - Sedation Patient Received Moderate/Deep Sedation with Procedure: No Diagnostics - Vital Signs Vital Signs Temp Pulse Resp BP Pulse Ox 02/03/20 12:58 98 F 104 18 127/91 98 - Laboratory Lab Statement: Any lab studies that have been ordered have been reviewed, and results considered in the medical decision making process. Disposition - Course Course Of Treatment: Patient with complaints of cough and shortness of breath with a known diagnosis of influenza. Afebrile. Oxygen saturation 98% room air which is normal. No signs respiratory distress on exam. Lung exam unremarkable. Chest x-ray negative for acute infiltrate. Given patient's symptoms and recent travel we'll test for COVID19. Discussed self quarantine and supportive care with patient. Will follow-up with PCP in all department. Return to the ER symptoms change or worsen. Patient understands and agrees with plan. - Differential Dx - Cardiopulmonary Differential Diagnoses - Cardiopulmonary: Influenza, Lower Resp Infection, SARS - Diagnoses Provider Diagnoses: Influenza, Cough Discharge ED - Sign-Out/Discharge Documenting (check all that apply): Patient Departure - Discharge Plan Condition: Good Disposition: HOME Patient Education Materials: Influenza (ED) Forms: COVID-19 Tested & Isolation Referrals: Nikki Miranda NP [Nurse Practitioner] - Additional Instructions: Follow up with PCP Please read isolation handout Self quarantine for 14 days Health department will follow up with you for testing results Increase fluids and rest Tylenol for pain and fever as directed Return to ER if symptoms change or worsen - Billing Disposition and Condition Condition: GOOD Disposition: Home
[2020-02-03 14:36] VITALS: BP 131/82
== END 2020-02-03 14:34 | disposition home or self-care (01) ==
LOC: ED 12:43
DX: J11.1 Influenza due to unidentified influenza virus with other respiratory manifestations (principal); R06.02 Shortness of breath; R05 Cough; Z79.899 Other long term (current) drug therapy; Z88.6 Allergy status to analgesic agent; F41.9 Anxiety disorder, unspecified; F32.9 Major depressive disorder, single episode, unspecified; Z87.891 Personal history of nicotine dependence; Z20.828 Contact with and (suspected) exposure to other viral communicable diseases
CPT/HCPCS: 71045; 99282; U0002